=== PATIENT | female | born 1935 | race Caucasian/White ===

== ENCOUNTER 2016-07-30 15:25 | Emergency (ER) | payer OTHER ==
[2016-07-30] MEDS ORDERED: IPRATROPIUM/ALBUTEROL 3 ML DEYVIAL IH ONE (15:43)
[2016-07-30 15:51] LABS: % IMMATURE GRANULYOCYTES 0.3 % (0.0-1.1); ABSOLUTE IMMATURE GRANULOCYTES 0.03 10^3/uL (0.00-0.10); ADD DIFF? NO; ADD MORPH? NO; ADD SCAN? NO; ATYPICAL LYMPHOCYTE FLAG 0 (0-99); FRAGMENT RBC FLAG 0 (0-99); HEMATOCRIT 29.1 % (38.0-47.0); LEFT SHIFT FLG 0 (0-99); LIPEMIA HEMOLYSIS FLAG 80 (0-99); MEAN CELL HEMOGLOBIN 24.7 pg (27.9-34.1); MEAN CELL HEMOGLOBIN CONCENTR. 30.9 g/dL (32.4-36.7); MEAN CELL VOLUME 79.9 fL (81.5-99.8); MEAN PLATELET VOLUME 9.2 fL (8.7-11.7); PLATELET CLUMPS FLAG 0 (0-99); PLATELET COUNT 545 10^3/uL (150-400); RED BLOOD CELL COUNT 3.64 10^6/uL (4.18-5.33); RED CELL DISTRIBUTION WIDTH 15.3 % (11.5-15.2)
--- NOTE | 2016-07-30 15:52 | CPEKG ---
Heart Rate: 86 RR Interval: 698 P-R Interval: 144 QRSD Interval: 86 QT Interval: 372 QTC Interval: 445 P [place]: 0 QRS [place]: 22 T Wave [place]: 40 EKG Severity - NORMAL ECG - EKG Impression: SINUS RHYTHM Electronically Signed By: Andrae Medeiros 30-Jul-2016 16:10:26
--- NOTE | 2016-07-30 16:09 | EDPHY ---
H & P Stated Complaint: short of breath x 1 week; sent from Dr. Gutierrez Time Seen by Provider: 07/30/16 15:30 HPI/ROS: This patient presented to her primary care physician's office for dyspnea over the past week and primary care physician, concerned over her hypoxia center here for further evaluation. The patient reports gradual onset of increasing dyspnea over the past week, particular over the past 2 days. In particular, she complains of dyspnea on exertion that is out of proportion to her typical mild dyspnea from COPD. Time she has increased cough from baseline over the past 48 hours described as dry and hacking in nature. Patient has a background history of COPD on home O2 of 4 L at baseline. She admits that she has not been using her nebs or inhalers recently. She notes a tremor that is new for her over the past few days associated with her symptoms. ROS: Constitutional: No fevers or chills. She does have mild fatigue. HEENT: She complains of coryza that she attributes to seasonal allergies. No sinus pain or pressure. Pulmonary: No hemoptysis. No pleuritic pain. Cardiovascular: No chest pain. She reports no lower extremity swelling recently. She does have some left leg swelling chronically but reports that is diminished recently. Musculoskeletal she complains of chronic low back pain is unchanged. : She has no urinary symptoms at this time. GI: She reports no abdominal pain. She reports good p.o. intake. She denies any dark tarry stools. She has normal bowel movements per her report. Integumentary: No skin rash. Complete review of symptoms is otherwise negative. Source: Patient, Other (A family friend accompanies the patient) Exam Limitations: No limitations - Personal History Current Tetanus/Diphtheria Vaccine: Unsure Current Tetanus Diphtheria and Acellular Pertussis (TDAP): Unsure - Medical/Surgical History PMH: COPD on home O2 Hypothyroidism No known prior history of anemia. Patient has a history of left sided empyema the required lobectomy at [facility] last September. Hx Asthma: No Hx Chronic Respiratory Disease: Yes Hx Diabetes: No Hx Cardiac Disease: Yes Hx Renal Disease: No Hx Cirrhosis: No Hx Alcoholism: No Hx HIV/AIDS: No Hx Splenectomy or Spleen Trauma: No Other PMH: COPD. Hypothyroidism. Lobectomy. anxiety. Aortic aneursym. back pain. hyperlipid. back surgery. osteoporosis - Family History Significant Family History: No pertinent family hx - Social History Smoking Status: Never smoked Alcohol Use: None Drug Use: None Additional Social History: The patient lives alone in a duplex - Physical Exam Exam: Pleasant 81-year-old female no acute distress. General Appearance: Alert, no distress. Eyes: Pupils equal and round no pallor or injection. ENT, Mouth: Mucous membranes moist. Respiratory: Diminished at the bases bilaterally with minimal rhonchi. Appreciate no rales. She has faint expiratory wheeze bilaterally. Cardiovascular: Regular rate and rhythm. No JVD. No peripheral edema. Mild split S2 no other murmurs are appreciated. Gastrointestinal: Abdomen is soft and nontender, no masses, bowel sounds normal. Rectal exam: Brown stool, heme negative on Hemoccult testing Neurological: GCS 15 with no focal sensory or motor deficits. Skin: Warm and dry, no rashes. She appears pale Musculoskeletal: Neck is supple nontender. Extremities are symmetrical, full range of motion. Psychiatric: Mood and affect are normal DIFFERENTIAL DIAGNOSIS: After history and physical exam differential diagnosis was considered for COPD exacerbation, anemia, pneumonia, PE, infection, viral URI with Constitutional: Initial Vital Signs Temperature (C) 36.8 C 07/30/16 15:29 Heart Rate 94 07/30/16 15:29 Respiratory Rate 20 07/30/16 15:29 Blood Pressure 120/82 H 07/30/16 15:29 O2 Sat (%) 73 L 07/30/16 15:29 O2 Delivery Mode Nasal Cannula O2 (L/minute) 2 Allergies/Adverse Reactions: No Known Allergies Allergy (Unverified 07/30/16 15:36) Home Medications: Medication Instructions Recorded Albuterol 07/30/16 Anoro Ellipta 62.5-25 Mcg INH 07/30/16 Aspirin 07/30/16 Calcium + D Soft Chewable Tab 07/30/16 Desonide 07/30/16 Hydroxyzine Pamoate 07/30/16 Levothyroxine 07/30/16 Pantoprazole Sodium 07/30/16 Proair Hfa 07/30/16 Prolia 07/30/16 Sertraline HCl 07/30/16 traMADol 07/30/16 Medical Decision Making - Diagnostics EKG Interpretation: 12 lead EKG performed at 3:50 p.m. reveals sinus rhythm at 86 Intervals: Normal throughout [place]: Normal throughout ST segments: Normal throughout Overall assessment normal EKG Imaging Results: Imaging Impressions Chest X-Ray 07/30/16 15:44 Impression: 1. Postsurgical change to the left hemithorax with left basilar pleural- parenchymal scarring, features which are new from 05/14/2011. Correlation with other intervening postoperative studies would be helpful to assess for more specific interval change. 2. COPD, with perihilar bronchial wall thickening. Chest/Thorax CTA 07/30/16 16:55 Impression: 1. Thrombus adherent to the posterior wall of the left main pulmonary artery that could represent subacute thrombus with recanalization although acute thrombus cannot be ruled out. 2. Subsegmental emboli to the right lower lobe noted. 3. Moderate emphysematous changes and COPD. 4. Mild interstitial lung disease. 5. Reticular nodular pattern left midlung anteriorly that could represent scarring versus bronchiolitis. 6. Previous left lobectomy. 7. Pleural thickening left midlung posterior medially with air collection could represent chronic loculated pneumothorax, bronchopulmonary fistula, or peripheral bleb. 8. Moderate dilatation of intrahepatic bile ducts. Consider correlation with LFTs. This was incompletely evaluated. If indicated, CT abdomen study may be worthwhile. 9. Multiple healed left-sided rib fractures. Findings discussed with Andrae Medeiros M.D. at 18:07 hour, 07/30/2016. CT angio chest discussed with Dr. Nicholas Garcia-Radiology. He notes a left main pulmonary artery thrombus versus mass. Patient also has subsegmental PEs to the right side lower lobe x2 she has evidence of possible bronchopleural fistula as well. Complete read to follow-up. Imaging: Discussed imaging studies w/ mix maker Radiologist ED Course/Re-evaluation: IV, O2 nasal cannula with O2 sats in the high 90s DuoNeb Nasal cannula O2 taper back to her baseline 4 L The patient's daughter, granddaughter and son-in-law arrive and her daughter clarifies that the patient is actually usually on 2 1/2 L nasal cannula at baseline and increased her O2 at home to 4 L due to worsening dyspnea. I counseled patient regarding her pulmonary embolism on CT angio after discussing the findings with our radiologist-Dr. Garcia. Patient started on heparin bolus and drip after aspirin p.o. She requests admission to [facility] but our hospital's on divert. Her 2nd choice is [facility]. I spoke with Dr. Clark, -hospitalist at [facility] accepts the patient for transfer to a telemetry bed Discussion: Patient here with new onset dyspnea attributable to pulmonary embolism complicating her baseline COPD. She reported a recent history of left leg swelling that was present for sometime & recently reduced swelling. She may have passed a lower extremity DVT causing her pulmonary embolism. Despite PE findings she is hemodynamically stable here. I think that her anemia which is microcytic hyperchromic is likely anemia of chronic disease related to COPD poor appetite recently. I think that her anemia is also contributing to her sense of dyspnea. She has a negative Hemoccult stool. EKG reveals no significant ischemic or strain pattern She is transported to [facility] by EMS in stable condition for a telemetry admission - Data Points Laboratory Results: Laboratory Results 07/30/16 15:40 07/30/16 15:40 07/30/16 07/30/16 07/30/16 16:45 16:20 15:40 WBC RBC Hgb Hct MCV MCH MCHC RDW Plt Count MPV Neut % (Auto) Lymph % (Auto) [place] % (Auto) Eos % (Auto) Baso % (Auto) Nucleat RBC Rel Count Absolute Neuts (auto) Absolute Lymphs (auto) Absolute Monos (auto) Absolute Eos (auto) Absolute Basos (auto) Absolute Nucleated RBC Immature Gran % Immature Gran # PT 12.9 SEC SEC (12.0-15.0) INR 1.00 (0.83-1.16) APTT 33.6 SEC SEC (23.0-38.0) D-Dimer 2.68 ug/mLFEU H ug/mLFEU (0.00-0.50) Sodium Potassium Chloride Carbon Dioxide Anion Gap BUN Creatinine Estimated GFR Glucose Calcium Stool Occult Bld Scrn NEGATIVE (NEGATIVE) 07/30/16 07/30/16 15:40 15:40 WBC 9.30 10^3/uL 10^3/uL (3.80-9.50) RBC 3.64 10^6/uL L 10^6/uL (4.18-5.33) Hgb 9.0 g/dL L g/dL (12.6-16.3) Hct 29.1 % L % (38.0-47.0) MCV 79.9 fL L fL (81.5-99.8) MCH 24.7 pg L pg (27.9-34.1) MCHC 30.9 g/dL L g/dL (32.4-36.7) RDW 15.3 % H % (11.5-15.2) Plt Count 545 10^3/uL H 10^3/uL (150-400) MPV 9.2 fL fL (8.7-11.7) Neut % (Auto) 80.2 % H % (39.3-74.2) Lymph % (Auto) 4.7 % L % (15.0-45.0) [place] % (Auto) 10.3 % % (4.5-13.0) Eos % (Auto) 3.9 % % (0.6-7.6) Baso % (Auto) 0.6 % % (0.3-1.7) Nucleat RBC Rel Count 0.0 % % (0.0-0.2) Absolute Neuts (auto) 7.45 10^3/uL H 10^3/uL (1.70-6.50) Absolute Lymphs (auto) 0.44 10^3/uL L 10^3/uL (1.00-3.00) Absolute Monos (auto) 0.96 10^3/uL H 10^3/uL (0.30-0.80) Absolute Eos (auto) 0.36 10^3/uL 10^3/uL (0.03-0.40) Absolute Basos (auto) 0.06 10^3/uL 10^3/uL (0.02-0.10) Absolute Nucleated RBC 0.00 10^3/uL 10^3/uL (0-0.01) Immature Gran % 0.3 % % (0.0-1.1) Immature Gran # 0.03 10^3/uL 10^3/uL (0.00-0.10) PT INR APTT D-Dimer Sodium 136 mEq/L mEq/L (134-144) Potassium 4.6 mEq/L mEq/L (3.5-5.2) Chloride 98 mEq/L mEq/L (97-110) Carbon Dioxide 26 mEq/l mEq/l (22-31) Anion Gap 12 mEq/L mEq/L (8-16) BUN 14 mg/dL mg/dL (7-23) Creatinine 0.7 mg/dL mg/dL (0.6-1.0) Estimated GFR > 60 Glucose 92 mg/dL mg/dL (70-100) Calcium 9.4 mg/dL mg/dL (8.5-10.4) Stool Occult Bld Scrn Medications Given: Discontinued Medications Albuterol/Ipratropium (Duoneb) 3 ml IH EDNOW ONE Stop: 07/30/16 15:44 Last Admin: 07/30/16 15:57 Dose: 3 ml Aspirin (Aspirin) 324 mg PO EDNOW ONE Stop: 07/30/16 18:16 Last Admin: 07/30/16 18:31 Dose: 324 mg Heparin Sodium (Porcine) (Heparin Injection) 0 unit IVP EDNOW ONE PRN Reason: Protocol Stop: 07/30/16 18:16 Last Admin: 07/30/16 18:31 Dose: 3,400 units Heparin Sodium (Porcine) (Heparin 50 Units/Ml (Premix)) 500 mls @ 0 mls/hr IV EDNOW ONE PRN Reason: As Directed Stop: 07/30/16 18:32 Last Admin: 07/30/16 18:31 Dose: 500 mls Departure - Departure Disposition: Acute Care Hospital Not [facility] Clinical Impression: Hypoxia, Microcytic anemia Pulmonary embolism Qualifiers: Pulmonary embolism type: other Chronicity: acute Acute cor pulmonale presence: without acute cor pulmonale Qualified Code(s): I26.99 - Other pulmonary embolism without acute cor pulmonale COPD (chronic obstructive pulmonary disease) Qualifiers: COPD type: unspecified COPD Qualified Code(s): J44.9 - Chronic obstructive pulmonary disease, unspecified Condition: Serious Referrals: Christine Gutierrez MD [Primary Care Provider] - As per Instructions
[2016-07-30 16:49] LABS: ANION GAP 12 mEq/L (8-16); CALCIUM 9.4 mg/dL (8.5-10.4); CARBON DIOXIDE 26 mEq/l (22-31); CHLORIDE 98 mEq/L (97-110); CREATININE 0.7 mg/dL (0.6-1.0); GLOMERULAR FILTRATION RATE > 60; GLUCOSE 92 mg/dL (70-100); POTASSIUM 4.6 mEq/L (3.5-5.2); SODIUM 136 mEq/L (134-144)
[2016-07-30] MEDS ORDERED: IOPAMIDOL (ISOVUE 370) 100 ML BTL IV ONE ×2 (17:00→17:17)
[2016-07-30 17:11] LABS: PROTIME(PATIENT) 12.9 SEC (12.0-15.0)
[2016-07-30 17:12] LABS: APTT 33.6 SEC (23.0-38.0)
[2016-07-30] MEDS ORDERED: HEPARIN 10,000 UNIT/10 ML MDV IVP ONE (18:15)
[2016-07-30] MEDS ORDERED: ASPIRIN 81 MG CHEWABLE TAB PO ONE (18:15)
[2016-07-30] MEDS ORDERED: HEPARIN/DEXTROSE 25,000 UNIT/500 ML BAG ONE (18:25)
[2016-07-30] MEDS ORDERED: HEPARIN/DEXTROSE 500 ML IV ONE (18:31)
[2016-07-30 20:46] VITALS: BP 126/72; PULSE 96; RESP 16; TEMP 97.3; O2SAT 97
== END 2016-07-30 20:43 | disposition short-term general hospital (02) ==
LOC: CED 15:25
DX: J44.9 Chronic obstructive pulmonary disease, unspecified (principal); I26.99 Other pulmonary embolism without acute cor pulmonale; R09.02 Hypoxemia; D50.9 Iron deficiency anemia, unspecified; Z79.82 Long term (current) use of aspirin
CPT/HCPCS: 71020; 71275; 93005; 96365; 96366; 96375; 99285; J1644; Q9967; 80048-PO; 82270-PO; 85025-PO; 85378-PO; 85610-PO; 85730-PO

== ENCOUNTER → 2016-08-25 | Outpatient (CLI) | payer OTHER | LOC: CIMAGING 14:47 | PROVIDERS: ATTEND Family Medicine | DX: R07.81 Pleurodynia (principal) | CPT/HCPCS: 71020-PO ==

== ENCOUNTER 2017-07-04 15:16 | Emergency (ER) | payer OTHER ==
--- NOTE | 2017-07-04 15:40 | EDPHY ---
H & P Time Seen by Provider: 07/04/17 15:23 HPI/ROS: HPI Skin tear to left leg. 82-year-old female by private vehicle with her daughter. This patient sustained a skin tear to her left lower anterior leg hitting it on a hard surface on Tuesday. She did not want to go to the emergency department at that time. Her daughter dressed the wound area with Tegaderm and gauze dressing. She went to a urgent care with her daughter this afternoon and they had difficulty removing the dressing in stated that they were afraid that they would make the wound worsen cause a new skin tear by removing the dressing, therefore they were referred here for further management. No new trauma. She has not had any significant redness, swelling or pain to the area. There was bleeding to the wound on Tuesday but this stopped. She is on Coumadin for pulmonary embolism with a recent INR of 2.23. She does not know when her last tetanus shot was. ROS: Constitutional: No fever, no chills. No weakness. Musculoskeletal: As above. Skin: As above. Neurological: No focal weakness or altered sensation. Past medical history: Pulmonary embolism on Coumadin, history of empyema requiring a left-sided lobectomy, COPD, on home oxygen, hypothyroidism, chronic back pain, osteoporosis. Social history: Lives alone in a formerly [facility]. She is with her daughter now. Her daughter lives nearby. No history of smoking. Physical Exam: General Appearance: Alert, pleasant elderly female, no distress. This patient is responding to questions appropriately and in full sentences. This patient appears well-hydrated and well-nourished. Head: Normocephalic atraumatic. Eyes: Pupils equal and round no pallor or injection. No lid edema, erythema or injection. Left lower extremity exam: Significant for a skin tear, lower left anterior leg , 1 area is about the size of a quarter and just medial to this there is a larger skin tear that is approximately 3 cm x 4 cm and rectangular in shape. There is some mild associated venous oozing. No expanding hematoma or pulsatile bleeding. No deep laceration. The wound area appears generally clean. No associated erythema or edema. No purulent drainage. The left lower extremity is neurovascularly intact. Neurological: Motor sensory function is grossly intact. Cranial nerves are normal. Gait is normal. Skin: Warm and dry, no rashes. As above. Extremities are symmetrical except noted above. All joints range without pain or impingement. Psychiatric: No agitation. No depression. Database: EKG: Imaging: Procedures: Emergency department course: Vital signs reviewed. There was a Tegaderm and gauze dressing adhered to the wound area was gently removed by myself. The wound area was gently cleansed, debrided and blot dried. The wound did not require significant debridement. A Mepilex dressing was placed over the wound area. Patient instructed to follow up with her primary care physician in 2-3 days for a wound check. She feels comfortable going home with her daughter. Return to emergency department precautions discussed with her and her daughter. All of their questions were answered. The patient was discharged in good condition. Differential Diagnosis: The differential diagnosis on this patient includes but is not limited to skin tear to left leg. Fracture, cellulitis, significant neurovascular injury unlikely. This represents a partial list of diagnoses considered. These considerations are based on history, physical exam, past history, reassessment and diagnostic testing. Smoking Status: Never smoked Constitutional: Initial Vital Signs Temperature (C) 37 C 07/04/17 15:28 Heart Rate 88 07/04/17 15:28 Respiratory Rate 20 07/04/17 15:28 Blood Pressure 149/91 H 07/04/17 15:28 O2 Sat (%) 95 07/04/17 15:28 O2 Delivery Mode Room Air Allergies/Adverse Reactions: No Known Allergies Allergy (Verified 07/04/17 15:39) Home Medications: Medication Instructions Recorded Albuterol 07/30/16 Aspirin 07/30/16 Calcium + D Soft Chewable Tab 07/30/16 Desonide 07/30/16 Hydroxyzine Pamoate 07/30/16 Levothyroxine 07/30/16 Pantoprazole Sodium 07/30/16 Proair Hfa 07/30/16 Sertraline HCl 07/30/16 Advair 250/50 (*) 07/04/17 Oxybutynin 07/04/17 Prolia 07/04/17 Tramadol HCl 07/04/17 Warfarin Sodium 07/04/17 Zolpidem Tartrate 07/04/17 Departure - Departure Disposition: Home, Routine, Self-Care Clinical Impression: Noninfected skin tear of left leg Condition: Good Instructions: Skin Tear (ED) Additional Instructions: Read and follow provided instructions. Follow-up with your primary care physician in 2-3 days for re-evaluation as discussed. The dressing should be removed at that time, the wound should be examined and a new dressing should be applied. Return to the emergency department for uncontrolled bleeding, pain, redness or swelling involving the wound area, fever or other serious concerns. Referrals: Christine Gutierrez MD [Primary Care Provider] - As per Instructions
[2017-07-04 16:25] VITALS: BP 162/109
== END 2017-07-04 16:26 | disposition home or self-care (01) ==
LOC: CED 15:16
DX: S81.812A Laceration without foreign body, left lower leg, initial encounter (principal); J44.9 Chronic obstructive pulmonary disease, unspecified; Z79.01 Long term (current) use of anticoagulants; Z79.82 Long term (current) use of aspirin; W22.8XXA Striking against or struck by other objects, initial encounter

== ENCOUNTER → 2017-11-25 | Outpatient (CLI) | payer OTHER | LOC: CIMAGING 11:18 | PROVIDERS: ATTEND Family Medicine | DX: R05 Cough (principal); J44.9 Chronic obstructive pulmonary disease, unspecified; Z90.2 Acquired absence of lung [part of] | CPT/HCPCS: 71046-PO ==